=== PATIENT | male | born 1990 | race Caucasian/White ===

== ENCOUNTER 2018-03-30 11:02 | Observation (INO) | payer SELFPAY ==
[2018-03-30] MEDS ORDERED: NS 1000 ML 1,000 ML ONE ×4 (11:06→16:44)
[2018-03-30] MEDS ORDERED: ZOFRAN INJ 4 MG VIAL IVP ONE ×2 (11:25→14:51)
[2018-03-30] MEDS ORDERED: NS 1000 ML 1,000 ML IV ONE ×3 (11:25→14:20)
[2018-03-30] MEDS ORDERED: MORPHINE SULFATE INJ 2 MG INJ ONE ×2 (11:33→11:51)
[2018-03-30] MEDS ORDERED: MORPHINE SULFATE INJ 2 MG INJ IVP ONE ×2 (11:40→11:51)
[2018-03-30 12:02] LABS: ALANINE AMINOTRANSFERASE 24 Units/L (12-78); ALBUMIN 4.2 g/dL (3.4-5.0); ALKALINE PHOSPHATASE 57 Units/L (46-116); AMYLASE 52 Units/L (25-115); ASPARTATE AMINO TRANSFERASE 11 Units/L (15-37); BLOOD UREA NITROGEN 9 mg/dL (7-18); CALCIUM 8.5 mg/dL (8.5-10.1); CARBON DIOXIDE 27.2 mmol/L (21-32); CHLORIDE 104 mmol/L (98-107); COR NA(FOR HYPERGLY) 143 mmol/L (136-145); LIPASE 165 Units/L (73-393); SODIUM 142 mmol/L (136-145); TOTAL PROTEIN 7.7 g/dL (6.4-8.2); eGFR BLACK RACES > 60 (>60); eGFR NON BLACK RACES > 60 (>60)
[2018-03-30 12:06] LABS: LACTIC ACID 3.6 mmol/L (0.4-2.0)
[2018-03-30 12:11] LABS: BASOPHILS # (AUTO) 0.1 X10^3/uL (0.0-0.1); BASOPHILS % (AUTO) 0.9 % (0.2-1.0); EOSINOPHILS # (AUTO) 0.3 x10^3/uL (0.0-0.2); EOSINOPHILS % (AUTO) 4.3 % (0.9-2.9); HEMATOCRIT 38.7 % (42.0-54.0); LYMPHOCYTES # (AUTO) 1.3 X10^3/uL (1.3-2.9); LYMPHOCYTES % (AUTO) 18.7 % (21.0-51.0); MEAN CORPUSCULAR HEMOGLOBIN 31.4 pg (27.0-34.0); MEAN CORPUSCULAR HGB CONC 36.1 g/dL (33.0-35.0); MEAN CORPUSCULAR VOLUME 87.1 fL (80.0-100.0); MEAN PLATELET VOLUME 7.6 fL (7.4-11.0); MONOCYTES # (AUTO) 0.3 x10^3/uL (0.3-0.8); MONOCYTES % (AUTO) 4.3 % (0.0-13.0); NEUTROPHILS # (AUTO) 5.1 x10^3/uL (2.2-4.8); NEUTROPHILS % (AUTO) 71.8 % (42.0-75.0); PLATELET COUNT 259 X10^3/uL (150.0-450.0); RED BLOOD COUNT 4.45 X10^6/uL (4.7-6.0); RED CELL DISTRIBUTION WIDTH 13.3 % (11.6-16.5); WHITE BLOOD COUNT 7.2 X10^3/uL (3.6-10.0)
[2018-03-30] MEDS ORDERED: PHENERGAN INJ 25 MG IV ONE (12:16)
[2018-03-30] MEDS ORDERED: PEPCID 20 MG IV PREMIX* 20 MG/50 ML BAG IV ONE ×2 (12:17→12:19)
[2018-03-30] MEDS ORDERED: PHENERGAN INJ 25 MG ONE (12:17)
--- NOTE | 2018-03-30 12:26 | DR.GENAD ---
HPI - PCP Primary Care Physician: UNK - HPI Comment HPI Comment: NO FEVER. NO DYSURIA. PATIENT SAID MAY BE PULL MUSCLE. - Complaint/Symptoms Chief Complaint Doctors Comments: PAIN LEFT UPPER ABDMINAL PAIN ON AND OFF TIMES SINCE LAST NIGHT. THIS AM LLQ ABDOMEN PAIN WITH N/V. PAIN SEVERE. Chief Complaint:: PT C/O LT SIDED ABD PAIN. PT STATES HE THOUGHT HE PULLED SOMETHING YESTERDAY AND THE PAIN WAS GOING AND COMING. PT STATES THIS AM WHEN HE GOT UP THE PAIN STARTED ALONG WITH NAUSEA. PT STATES THE PAIN HAS STILL BEEN COIMING NAD GOING, BUT IT IS HURTING "REAL BAD" - Nurses notes reviewed Nurses Notes Review: Yes - Source History Provided: Patient - Mode of Arrival Mode of Arrival: EMS - Timing Onset of Chief Complaint: 03/29/18 Came on: Suddenly - Duration Duration: Constant Duration: Hours - Severity Severity: Moderate PMH - PMH Past Medical History: No Past Surgical History: Yes Surgical History: Appendectomy - Family History History of Family Medical Conditions: No - Social History Does any household member use tobacco: No Alcohol Use: None Do you use any recreational Drugs:: No Lives With: Family Lives Where: Home - infectious screening In the last 2 months have you had wt loss of >10#?: NO Have you had fever, night sweats or hemotysis?: No Have you traveled outside the country in the last 6 months?: No Isolation: Standard ROS - Review of Systems Constitutional: No Symptoms Reported Eyes: No Symptoms Reported ENTM: No Symptoms Reported Respiratoy: No Symptoms Reported Cardiovascular: No Symptoms Reported Gastrointestinal/Abdominal: Abdominal Pain Genitourinary: No Symptoms Reported Neurological: No Symptoms Reported Musculoskeletal: Back Pain Integumentary: No Symptoms Reported Hematologic/Lymphatic: No Symptoms Reported Endocrine: No Symptoms Reported All Other Systems: Reviewed and Negative PE - Vital Signs Vitals: Temperature 97.7 F Pulse Rate [Right Brachial] 100 Pulse Rate 84 Respiratory Rate 16 Blood Pressure [Right Arm] 102/64 Blood Pressure 97/53 O2 Sat by Pulse Oximetry 100 - General Limitations: No Limitations General Appearance: Alert - Head Head Exam: Normal Inspection - Eyes Eye exam: Normal Appearance - ENT ENT Exam: Normal External Ear Exam External Ear Exam: Normal External Inspection TM/Canal Exam: Bilateral Normal Nose Exam: Normal Nose Exam Mouth Exam: Normal Inspection Throat Exam: Normal Inspection - Neck Neck Exam: Trachea Midline - Chest Chest Inspection: Symmetric Chest Wall Rise - Respiratory Respiratory Exam: Normal Lung Sounds Bilat Respiratory Exam: Bilateral Clear to Auscultation - Cardiovascular Cardiovascular Exam: Regular Rate, Normal Rhythm, Normal Heart Sounds - Abdominal Exam Abdominal Exam: Normal Bowel Sounds, Soft, Tenderness Abdominal Tenderness: LLQ, Moderate - Extremities Extremities Exam: Normal Inspection - Back Back Exam: (L) CVA Tenderness - Neurologic Neurological Exam: Alert, Oriented X3 - Psychiatric Psychiatric Exam: Normal Affect, Normal Mood - Skin Skin Exam: Normal Color [facility] - Additional Information Additional Information Obtained From: Family - Differential Diagnosis Differential Diagnosis: ABDOMINAL PAIN, UTI, KIDNEY STONE Course - Treatment Treatment: SEE ORDERS. IV FLUIDS IV PAIN MED AND IV ANTIBIOTICS IN ED. - Reevaluation 1st: Improved (PAIN IMPROVING. STILL NAUSEATED. BP STILL LOW.) - Consultation Consultation Comments: DISCUSS PATIENT WITH DR. ORELLANA. HE WILL ADMIT PATIENT. - Education/Counseling Education/Counseling: Patient, Family, Education Educated On: Treatment, Diagnosis, Needs for Follow Up ROR - Labs Reviewed Laboratory Results Reviewed?: Yes Result Diagrams: 03/31/18 05:50 03/31/18 05:50 Laboratory: WBC 7.2 X10^3/uL (3.6-10.0) 03/30/18 11:35 RBC 4.45 X10^6/uL (4.7-6.0) L 03/30/18 11:35 Hgb 14.0 g/dL (13.5-18.0) 03/30/18 11:35 Hct 38.7 % (42.0-54.0) L 03/30/18 11:35 MCV 87.1 fL (80.0-100.0) 03/30/18 11:35 MCH 31.4 pg (27.0-34.0) 03/30/18 11:35 MCHC 36.1 g/dL (33.0-35.0) H 03/30/18 11:35 RDW 13.3 % (11.6-16.5) 03/30/18 11:35 Plt Count 259 X10^3/uL (150.0-450.0) 03/30/18 11:35 MPV 7.6 fL (7.4-11.0) 03/30/18 11:35 Neut % (Auto) 71.8 % (42.0-75.0) 03/30/18 11:35 Lymph % (Auto) 18.7 % (21.0-51.0) L 03/30/18 11:35 [place] % (Auto) 4.3 % (0.0-13.0) 03/30/18 11:35 Eos % (Auto) 4.3 % (0.9-2.9) H 03/30/18 11:35 Baso % (Auto) 0.9 % (0.2-1.0) 03/30/18 11:35 Neut # (Auto) 5.1 x10^3/uL (2.2-4.8) H 03/30/18 11:35 Lymph # (Auto) 1.3 X10^3/uL (1.3-2.9) 03/30/18 11:35 [place] # (Auto) 0.3 x10^3/uL (0.3-0.8) 03/30/18 11:35 Eos # (Auto) 0.3 x10^3/uL (0.0-0.2) H 03/30/18 11:35 Baso # (Auto) 0.1 X10^3/uL (0.0-0.1) 03/30/18 11:35 Absolute Nucleated RBC 0.0 /100WBC 03/30/18 11:35 Sodium 142 mmol/L (136-145) 03/30/18 11:35 Corrected Sodium 143 mmol/L (136-145) 03/30/18 11:35 Potassium 3.5 mmol/L (3.5-5.1) 03/30/18 11:35 Chloride 104 mmol/L (98-107) 03/30/18 11:35 Carbon Dioxide 27.2 mmol/L (21-32) 03/30/18 11:35 BUN 9 mg/dL (7-18) 03/30/18 11:35 Creatinine 0.90 mg/dL (0.70-1.30) 03/30/18 11:35 Est GFR (MDRD) Af Amer > 60 (>60) 03/30/18 11:35 Est GFR (MDRD) Non-Af > 60 (>60) 03/30/18 11:35 Glucose 142 mg/dL (65-99) H 03/30/18 11:35 Lactic Acid 3.6 mmol/L (0.4-2.0) H 03/30/18 11:35 Calcium 8.5 mg/dL (8.5-10.1) 03/30/18 11:35 Corrected Calcium TNP 03/30/18 11:35 Total Bilirubin 0.70 mg/dL (0.2-1.0) 03/30/18 11:35 AST 11 Units/L (15-37) L 03/30/18 11:35 ALT 24 Units/L (12-78) 03/30/18 11:35 Alkaline Phosphatase 57 Units/L (46-116) 03/30/18 11:35 Total Protein 7.7 g/dL (6.4-8.2) 03/30/18 11:35 Albumin 4.2 g/dL (3.4-5.0) 03/30/18 11:35 Globulin 3.5 g/dL (2.5-4.5) 03/30/18 11:35 Albumin/Globulin Ratio 1.2 Ratio (1.1-2.1) 03/30/18 11:35 Amylase 52 Units/L (25-115) 03/30/18 11:35 Lipase 165 Units/L (73-393) 03/30/18 11:35 Specimen Type Clean catch urine 03/30/18 13:30 Urine Color [place] (YELLOW) 03/30/18 13:30 Urine Appearance Cloudy (CLEAR) 03/30/18 13:30 Urine pH 8.0 (5.0 - 8.0) 03/30/18 13:30 Ur Specific [place] 1.015 (1.000-1.030) 03/30/18 13:30 Urine Protein 2+ (NEGATIVE) 03/30/18 13:30 Urine Glucose (UA) Negative (NEGATIVE) 03/30/18 13:30 Urine Ketones 4+ (NEGATIVE) 03/30/18 13:30 Urine Occult Blood 4+ (NEGATIVE) 03/30/18 13:30 Urine Nitrite Negative (NEGATIVE) 03/30/18 13:30 Urine Bilirubin Negative (NEGATIVE) 03/30/18 13:30 Urine Urobilinogen 1+ (NORMAL) 03/30/18 13:30 Ur Leukocyte Esterase 1+ (NEGATIVE) 03/30/18 13:30 Urine RBC 10-20 /HPF (NONE SEEN) 03/30/18 13:30 Urine WBC 0-2 /HPF (NONE SEEN) 03/30/18 13:30 Ur Squamous Epith Cells Rare /HPF (NEGATIVE) 03/30/18 13:30 Amorphous Sediment 2+ /HPF (NEGATIVE) 03/30/18 13:30 Urine Bacteria Trace /HPF (NEGATIVE) 03/30/18 13:30 Urine Mucus Many /HPF (NEGATIVE) 03/30/18 13:30 Ur Culture Indicated? Yes/culture set up 03/30/18 13:30 - XRAY XRAY Interpreted by: Radiologist XRAY Findings: REPORT DISCUSS WITH PATIENT AND HIS GRANDMOTHER. - Diagnosis Discharge Problem: Left ureteral stone, Gall stone, UTI (urinary tract infection), Hypotension, Elevated lactic acid level Abdominal pain Qualifiers: Abdominal location: left lower quadrant Qualified Code(s): R10.32 - Left lower quadrant pain - Discharge Plan Disposition: ADMITTED INPATIENT Condition: Stable - Follow ups/Referrals - Instructions
--- NOTE | 2018-03-30 12:57 | CT ---
HISTORY: Nausea, vomiting, left-sided abdominal pain Study: CT abdomen and pelvis without IV or oral contrast Comparison: No priors Technique: Multiple axial images of the abdomen and pelvis were obtained from the lung bases to the pubic symphy sis without the administration of IV or oral contrast. Coronal and sagittal images are also reviewed . Dose reduction techniques utilized automatic exposure control. Findings: The visualized portions of the lung bases are unremarkable. The liver, spleen, pancreas and adrenal glands are unremarkable in their CT appearance. There is a 1.6 cm lamellated gallstone present withi n the gallbladder. There are bilateral kidney stones. Largest stone is present on the left measuring about 5 mm in diameter. No obstruction is seen on the right. There is left-sided hydronephrosis and h ydroureter secondary to a 3.2 mm stone in the left distal ureter very near the bladder base.. No sig nificant mesenteric lymphadenopathy or stranding can be observed. No free fluid or free air is seen within the abdomen. No bowel wall thickening or bowel dilatation is present. The appendix is surgica lly absent. Large amount of stool is present throughout the colon. No significant diverticulosis is s een.. The urinary bladder is grossly unremarkable. The bony structures are grossly intact. IMPRESSION: 3.2 mm left distal ureteral stone in the bladder base. There is moderate left-sided hydronephrosis an d hydroureter. Bilateral kidney stones. Solitary 1.6 cm lamellated gallstone. Surgically absent appendix. Reported By:
[2018-03-30] MEDS ORDERED: TORADOL 30 MG VIAL IVP ONE (13:04)
[2018-03-30] MEDS ORDERED: TORADOL 30 MG VIAL ONE (13:05)
[2018-03-30 13:38] LABS: BILIRUBIN,URINE NEGATIVE (NEGATIVE); BLOOD/HEMOGLOBIN,URINE 4+ (NEGATIVE); GLUCOSE, URINE NEGATIVE (NEGATIVE); KETONES,URINE 4+ (NEGATIVE); LEUKOCYTE ESTERASE ,URINE 1+ (NEGATIVE); NITRITES,URINE NEGATIVE (NEGATIVE); PROTEIN,URINE 2+ (NEGATIVE); UROBILINOGEN,URINE 1+ (NORMAL)
[2018-03-30 13:40] LABS: APPEARANCE,URINE CLOUDY (CLEAR); COLOR,URINE AMBER (YELLOW)
[2018-03-30] MEDS ORDERED: FLOMAX PO ONE (13:41)
[2018-03-30 13:47] LABS: BACTERIA,URINE TRACE /HPF (NEGATIVE); SQUAMOUS EPITHELIAL CELL,UR RARE /HPF (NEGATIVE)
[2018-03-30 13:48] LABS: AMORPHOUS SEDIMENT,UR 2+ /HPF (NEGATIVE); MUCUS,URINE MANY /HPF (NEGATIVE)
[2018-03-30] MEDS ORDERED: ROCEPHIN 1 GM IV PREMIX 1 GM/50 ML IV.SOLN. IV ONE ×2 (14:21→14:27)
[2018-03-30] MEDS ORDERED: ZOFRAN INJ 4 MG VIAL ONE (14:49)
[2018-03-30] MEDS ORDERED: NS 100 ML IV + SPIKE MINIBAG* 100 ML IV ONE (16:53)
[2018-03-30] MEDS ORDERED: ZOSYN VIAL 3.375 GM IV ONE (16:54)
[2018-03-30] MEDS: ZOSYN VIAL 2.25 GM 2.25 GM in NS 100 ML IV + SPIKE MINIBAG* 100 ML IV SCH ×2 (17:13→22:38)
[2018-03-30] MEDS: NS 1000 ML 1,000 ML IV SCH (17:14)
[2018-03-30] MEDS ORDERED: MORPHINE SULFATE INJ 4 MG IVP PRN (17:29)
[2018-03-30] MEDS ORDERED: TORADOL 15 MG VIAL IVP PRN (17:29)
[2018-03-30] MEDS ORDERED: ZOFRAN INJ 4 MG VIAL IVP PRN (17:29)
[2018-03-30 18:36] VITALS: BMI 18.9
[2018-03-30] MEDS: CIPRO IV 200 MG PREMIX* 200 MG/100 ML BAG IV SCH (21:15)
[2018-03-31] MEDS: NS 1000 ML 1,000 ML IV SCH (04:40)
[2018-03-31] MEDS: ZOSYN VIAL 2.25 GM 2.25 GM in NS 100 ML IV + SPIKE MINIBAG* 100 ML IV SCH (05:07)
[2018-03-31 06:47] LABS: LACTIC ACID 1.2 mmol/L (0.4-2.0)
[2018-03-31 06:48] LABS: ALANINE AMINOTRANSFERASE 21 Units/L (12-78); ALBUMIN 3.2 g/dL (3.4-5.0); ALKALINE PHOSPHATASE 44 Units/L (46-116); ASPARTATE AMINO TRANSFERASE 11 Units/L (15-37); BLOOD UREA NITROGEN 7 mg/dL (7-18); CALCIUM 7.5 mg/dL (8.5-10.1); CARBON DIOXIDE 26.7 mmol/L (21-32); CHLORIDE 111 mmol/L (98-107); COR CA(FOR HYPOALB) 8.1 mg/dL (8.5-10.1); CREATININE 0.65 mg/dL (0.70-1.30); MAGNESIUM 1.8 mg/dL (1.7-2.9); SODIUM 145 mmol/L (136-145); TOTAL PROTEIN 5.7 g/dL (6.4-8.2); eGFR BLACK RACES > 60 (>60); eGFR NON BLACK RACES > 60 (>60)
[2018-03-31 07:24] LABS: BASOPHILS % (AUTO) 0.4 % (0.2-1.0); EOSINOPHILS # (AUTO) 0.3 x10^3/uL (0.0-0.2); EOSINOPHILS % (AUTO) 3.8 % (0.9-2.9); LYMPHOCYTES # (AUTO) 2.6 X10^3/uL (1.3-2.9); LYMPHOCYTES % (AUTO) 36.2 % (21.0-51.0); MEAN CORPUSCULAR HEMOGLOBIN 31.8 pg (27.0-34.0); MEAN CORPUSCULAR HGB CONC 36.3 g/dL (33.0-35.0); MEAN CORPUSCULAR VOLUME 87.6 fL (80.0-100.0); MEAN PLATELET VOLUME 7.3 fL (7.4-11.0); MONOCYTES # (AUTO) 0.7 x10^3/uL (0.3-0.8); MONOCYTES % (AUTO) 9.4 % (0.0-13.0); NEUTROPHILS # (AUTO) 3.6 x10^3/uL (2.2-4.8); NEUTROPHILS % (AUTO) 50.2 % (42.0-75.0); PLATELET COUNT 205 X10^3/uL (150.0-450.0); RED BLOOD COUNT 3.88 X10^6/uL (4.7-6.0); RED CELL DISTRIBUTION WIDTH 13.7 % (11.6-16.5); WHITE BLOOD COUNT 7.2 X10^3/uL (3.6-10.0)
[2018-03-31 07:27] LABS: HEMOGLOBIN 12.3 g/dL (13.5-18.0)
[2018-03-31] MEDS: CIPRO IV 200 MG PREMIX* 200 MG/100 ML BAG IV SCH (08:51)
[2018-03-31 12:34] VITALS: BP 98/55
== END 2018-03-31 17:48 | disposition home or self-care (01) ==
LOC: ER 11:07 → ICU 16:39
PROVIDERS: ADMIT Internal Medicine; ATTEND Internal Medicine
DX: I95.89 Other hypotension (principal); R10.84 Generalized abdominal pain; N13.2 Hydronephrosis with renal and ureteral calculous obstruction; N39.0 Urinary tract infection, site not specified; R10.32 Left lower quadrant pain; K80.20 Calculus of gallbladder without cholecystitis without obstruction; N20.1 Calculus of ureter; R79.89 Other specified abnormal findings of blood chemistry
CPT/HCPCS: 36415; 74176; 80053; 81001; 82150; 82365; 83605; 83690; 83735; 85025; 87040; 87086; 96365; 96367; 96374; 96375; 99282; 99284; A4216; A4222; S0028; G0378; J0696; J0744; J1885; J2270; J2405; J2543; J2550